=== PATIENT | male | born 1985 | race African-American/Black ===

== ENCOUNTER 2021-01-17 07:38 | Emergency (ER) | payer MEDICAID ==
[~2021-01-17] VITALS: Ht 182.9 cm; Wt 89.0 kg
[2021-01-17] MEDS ORDERED: KETOROLAC 60MG/2ML VIAL IM ONE (08:45)
[2021-01-17] MEDS ORDERED: IBUPROFEN 400MG TABLET PO ONE (08:45)
[2021-01-17] MEDS ORDERED: IBUP-2028 MT (08:47)
[2021-01-17 08:51] VITALS: BP 130/98
== END 2021-01-17 09:07 | disposition home or self-care (01) ==
LOC: ER 07:38
DX: M54.9 Dorsalgia, unspecified (principal); M25.512 Pain in left shoulder; Y93.I1 Activity, roller coaster riding
CPT/HCPCS: 96372; 99283; J1885